=== PATIENT | male | born 1960 | race Caucasian/White ===

== ENCOUNTER → 2016-08-18 | Outpatient (CLI) | payer OTHER ==
[~2016-08-18] MED LIST: GADAVIST IV PRN; GLC/500 PO; LEVO-366 PO; SULF800T23 PO
--- NOTE | 2016-08-18 18:31 | DIAGNOSTIC IMAGING REPORT ---
MRI LEFT FOREFOOT COMBO CLINICAL HISTORY: Left foot pain and swelling. COMPARISON STUDY: No priors. TECHNIQUE: MRI of the left forefoot is performed utilizing various T1 and T2-weighted sequences in the axial, sagittal, and coronal planes. Contrast-enhanced sequences are acquired following the IV administration of 10 cc of Gadavist. Note that interpretation is significantly suboptimal without plain film correlate. FINDINGS: There is no marrow signal abnormality identified throughout the skeletal structures of the forefoot to suggest fracture. A cutaneous marker has been placed over the dorsal aspect of the foot at the level of the fourth metacarpal. There is diffuse edema of the subcutaneous and deep soft tissues at this site. Patchy nonspecific abnormal enhancement is seen on the postcontrast images. No organized fluid collection is seen. The partially imaged flexor and extensor tendons appear intact. There is mild edema present within the flexor musculature along the dorsal aspect of the foot. The plantar fascia is normal as visualized. Mild arthritic change is seen involving the intertarsal joints and at the second tarsometatarsal articulation. No evidence of bony erosion is seen. There is no evidence of Lisfranc injury. IMPRESSION: 1. No acute bony abnormality is seen in the left forefoot. 2. There is diffuse edema of the subcutaneous and deep soft tissues, greatest along the dorsal aspect of the foot at the site of interest. The appearance is nonspecific and suggests cellulitis. Clinical correlation will be required. 3. No organized fluid collection is seen to suggest abscess. 4. There is also a nonspecific myositis of the underlying flexor musculature. Dictated: 08/18/2016 4:28 PM Transcribed: 08/18/2016 6:31 PM [email or web address] Electronically signed by: Jeffrey Montero M.D. 08/18/2016 6:42 PM Dictated Date/Time: 08/18/2016 4:28 PM
== END | disposition home or self-care (01) ==
LOC: C.MRI 14:59
DX: M79.672 Pain in left foot (principal); E11.8 Type 2 diabetes mellitus with unspecified complications; M86.9 Osteomyelitis, unspecified; R50.9 Fever, unspecified

== ENCOUNTER 2016-08-29 16:31 | Emergency (ER) | payer OTHER ==
[~2016-08-29] VITALS: Ht 180.3 cm; Wt 95.5 kg
[2016-08-29 16:35] VITALS: TEMP 36.8; Ht 180.3 cm; Wt 95.5 kg
[2016-08-29] MEDS ORDERED: SULF800T23 PO (16:57)
[2016-08-29] MEDS ORDERED: LEVO-366 PO (16:57)
[2016-08-29] MEDS ORDERED: GLC/500 PO (16:57)
[2016-08-29 17:15] LABS: HEMATOCRIT 44.5 % (42-52); MEAN CELL VOLUME 90.3 fL (80-100); MEAN CORPUSCULAR HEMOGLOBIN 29.6 pg (25-34); MEAN CORPUSCULAR HGB CONC 32.8 g/dl (32-36); MEAN PLATELET VOLUME 10.1 fL (7.4-10.4); PLATELET COUNT 389 K/uL (130-400); RED BLOOD COUNT 4.93 M/uL (4.7-6.1); WHITE BLOOD COUNT 9.04 K/uL (4.8-10.8)
[2016-08-29 17:37] LABS: BASO % 0.2 %; BASO ABS # 0.02 K/uL (0-0.2); COMPLETE YES; EOS % 1.2 %; IG% 0.7 %; LYMPH % 21.1 %; LYMPH ABS # 1.91 K/uL (1.2-3.4); MONO % 5.8 %
[2016-08-29 17:38] LABS: BUN/CREATININE RATIO 15.9 (10-20); CALCIUM 8.5 mg/dl (8.5-10.1); CREATININE 0.83 mg/dl (0.60-1.40); POTASSIUM 3.6 mmol/L (3.5-5.1)
[2016-08-29 18:15] VITALS: BP 142/86; PULSE 87; O2SAT 97
--- NOTE | 2016-08-29 19:37 | EMERGENCY ROOM VISIT NOTE ---
History Report prepared by Peg: Lora Sebastian Under the Supervision of: Dr. Arnaldo Palacio M.D. First contact with patient: 16:40 Chief Complaint: OTHER COMPLAINT Stated Complaint: FEELING SHAKY, HAVING TROUBLE WALKING History of Present Illness The patient is a 55 year old male who presents to the Emergency Room with complaints of generalized weakness that began 2 hours ago and has started to improve. The patient was diagnosed with Diabetes Mellitus last week. He was started on insulin 3 days ago. This morning the patient at breakfast and took his insulin as prescribed. He checked his BSG this morning and it was 109. He then did not eat lunch or anything else throughout the day. About two hours ago the patient started to feel clammy, sweaty, lightheaded, and shaky. The patient reports that he just ate prior to his arrival in the ED. He is feeling generally better since eating, but states that he is still feeling slightly weak. He denies fever, chest pain, shortness of breath, abdominal pain, cough, and recent cold symptoms. The patient is currently being treated for a cellulitis of his left foot. He was prescribed Levaquin, Clindamycin, and Bactrim. He took these medications as prescribed and states that his cellulitis has improved. He is only currently taking two of the three antibiotics. He denies any significant pain to the left foot. Source of History: patient Onset: 2 hours ago Position: other (global) Symptom Intensity: BSG 109 Quality: other (weakness) Timing: other (improving) Modifying Factors (Worsening): other (not eating) Modifying Factors (Relieving): eating Associated Symptoms: + diaphoresis, No fevers, No cough, No chest pain, No SOB, No abdominal pain Note: Pt felt clammy, lightheaded, and shaky. Review of Systems See HPI for pertinent positives & negatives. A total of 10 systems reviewed and were otherwise negative. Past Medical & Surgical Medical Problems: (1) Diabetes mellitus with insulin therapy (2) Vocal cord disease Family History No pertinent history stated. Social History Smoking Status: Never Smoker Current/Historical Medications Scheduled Levofloxacin (Levaquin), 500 MG PO DAILY Metformin Hcl (Glucophage), 1,000 MG PO DAILY Sulfa/Trimethoprim (Bactrim Ds 800MG/160MG), 1 TAB PO BID Allergies Coded Allergies: No Known Allergies (Unverified , 08/29/16) Physical Exam Vital Signs Date Time Temp Pulse Resp B/P (MAP) Pulse Ox O2 Delivery O2 Flow Rate FiO2 08/29/16 18:15 87 20 142/86 97 08/29/16 17:13 93 16 122/80 95 Room Air 08/29/16 16:35 36.8 93 16 138/85 94 Room Air Physical Exam Constitutional: Vital signs reviewed. Eyes: Pupils are equal round reactive to light. Conjunctiva are noninjected. ENT: Pharynx is clear without erythema or exudate. Mucous membranes are moist. Neck supple without meningeal signs. Respiratory: Clear to auscultation bilaterally. Breath sounds are equal bilaterally. Cardiovascular: Regular rate and rhythm. No rubs or gallops. GI: Soft, nondistended and nontender. Bowel sounds are present. Musculoskeletal: Mild erythema to the lateral dorsal aspect of the left foot without increased warmth or redness, no ulcerations. Integumentary: No cyanosis. Neurological: The patient is awake and alert. No focal deficits. Psychiatric: Normal affect. Medical Decision & Procedures Laboratory Results 08/29/16 16:58 Red Blood Count 4.93, Mean Corpuscular Volume 90.3, Mean Corpuscular Hemoglobin 29.6, Mean Corpuscular Hemoglobin Concent 32.8, Mean Platelet Volume 10.1, Neutrophils (%) (Auto) 71.0, Lymphocytes (%) (Auto) 21.1, Monocytes (%) (Auto) 5.8, Eosinophils (%) (Auto) 1.2, Basophils (%) (Auto) 0.2, Neutrophils # (Auto) 6.42, Lymphocytes # (Auto) 1.91, Monocytes # (Auto) 0.52, Eosinophils # (Auto) 0.11, Basophils # (Auto) 0.02 08/29/16 16:58 Test 08/29/16 16:42 08/29/16 16:58 08/29/16 17:05 Bedside Glucose 142 mg/dl (70-99) White Blood Count 9.04 K/uL (4.8-10.8) Red Blood Count 4.93 M/uL (4.7-6.1) Hemoglobin 14.6 g/dL (14.0-18.0) Hematocrit 44.5 % (42-52) Mean Corpuscular Volume 90.3 fL (80-100) Mean Corpuscular Hemoglobin 29.6 pg (25-34) Mean Corpuscular Hemoglobin Concent 32.8 g/dl (32-36) Platelet Count 389 K/uL (130-400) Mean Platelet Volume 10.1 fL (7.4-10.4) Neutrophils (%) (Auto) 71.0 % Lymphocytes (%) (Auto) 21.1 % Monocytes (%) (Auto) 5.8 % Eosinophils (%) (Auto) 1.2 % Basophils (%) (Auto) 0.2 % Neutrophils # (Auto) 6.42 K/uL (1.4-6.5) Lymphocytes # (Auto) 1.91 K/uL (1.2-3.4) Monocytes # (Auto) 0.52 K/uL (0.11-0.59) Eosinophils # (Auto) 0.11 K/uL (0-0.5) Basophils # (Auto) 0.02 K/uL (0-0.2) RDW Standard Deviation 41.4 fL (36.4-46.3) RDW Coefficient of Variation 12.6 % (11.5-14.5) Immature Granulocyte % (Auto) 0.7 % Immature Granulocyte # (Auto) 0.06 K/uL (0.00-0.02) Anion Gap 11.0 mmol/L (3-11) Est Creatinine Clear Calc Drug Dose 120.0 ml/min Estimated GFR () 115.6 Estimated GFR (Non- 99.8 BUN/Creatinine Ratio 15.9 (10-20) Calcium Level 8.5 mg/dl (8.5-10.1) Total Bilirubin 0.4 mg/dl (0.2-1) Direct Bilirubin 0.1 mg/dl (0-0.2) Aspartate Amino Transf (AST/SGOT) 12 U/L (15-37) Alanine Aminotransferase (ALT/SGPT) 27 U/L (12-78) Alkaline Phosphatase 79 U/L (45-117) Total Protein 7.3 gm/dl (6.4-8.2) Albumin 3.2 gm/dl (3.4-5.0) Bedside Troponin I < 0.030 ng/ml (0-0.045) Laboratory results as reviewed by me. ECG Indication: weakness Rate (beats per minute): 94 Rhythm: sinus rhythm Findings: PAC, no acute ischemic change, other (baseline artifact) ED Course 1640: The patient was evaluated in room C12B. A complete history and physical exam was performed. 175: I reassessed the patient at this time. He is feeling better and resting comfortably. I discussed the results and treatment plan with the patient. I answered all pertaining questions that he had. He expressed understanding and verbalized agreement. The patient will be discharged home. Medical Decision This is a 55-year-old male who presents with generalized weakness with clamminess and shakiness. Differential diagnosis includes hypoglycemia, metabolic derangement, infection, cardiac, anemia. I did perform a limited focused review of portions of the patient's old chart on the electronic medical record. The patient has had no recent pertinent visits to this hospital. Medication Reconciliation: I attest that I have personally reviewed the patient' s current medication list. Blood Pressure Screening: Patient was found to have an elevated blood pressure and was referred to their primary doctor for recheck and further treatment. I did evaluate the patient as noted above. The patient was newly started on insulin this week. He took his dose of insulin and had breakfast but did not eat anything all day. He became shaky, clammy and felt generalized weakness. He states he was so shaky was unable to check his own blood sugar. He denies any fever, chest discomfort or shortness of breath. He has a healing infection to his left foot which he states is getting much better. He ate a meal and states that he is a ready starting to feel better. IV access was established. The patient was placed on a continuous nurse monitoring. I did order and personally review the patient's 12-lead EKG as described above. I did order and review the patient's blood work as noted in the electronic medical record. I did reevaluate the patient. He is feeling much better at this time. It seems most likely that his skipping meals was the cause of the patient's symptoms. He was advised to eat meals regularly and to follow closely with his doctor. He was told to return for any worsening or any new concerning symptoms as outlined below. He was discharged in good condition. Impression Primary Impression: Generalized weakness Scribe Attestation The scribe's documentation has been prepared under my direct and personally reviewed by me in its entirety. I confirm that the note above accurately reflects all work, treatment, procedures, and medical decision making performed by me. Departure Information Dispostion Home / Self-Care Referrals Glen Cool Jr,D.O. (PCP) Forms HOME CARE DOCUMENTATION FORM, IMPORTANT VISIT INFORMATION, WORK / SCHOOL INSTRUCTIONS Patient Instructions ED Weakness [facility], My [facility] Additional Instructions You have been examined and treated today on an emergency basis only. This is not a substitute for, or an effort to provide, complete comprehensive medical care. It is impossible to recognize and treat all injuries or illnesses in a single emergency department visit. It is therefore important that you follow up closely with your physician. Call as soon as possible for an appointment. Return for worsening symptoms or if you develop fever, vomiting, chest pain, shortness of breath or any other concerning symptoms.
== END 2016-08-29 18:16 | disposition home or self-care (01) ==
LOC: C.EDB 16:33 → C.EDC 18:16
DX: R53.1 Weakness (principal); E11.9 Type 2 diabetes mellitus without complications; J38.3 Other diseases of vocal cords